=== PATIENT | female | born 1980 | race African-American/Black ===

== ENCOUNTER 2020-02-13 22:10 | Emergency (ER) | payer BC ==
[~2020-02-13] VITALS: Ht 170.2 cm; Wt 68.0 kg
[2020-02-13 22:12] VITALS: BP 187/112
--- NOTE | 2020-02-13 22:12 | NUR ---
ED Nurse Note: IV line was established by EMT ship's captain. Blood specimen collected by RN and sent to lab.
--- NOTE | 2020-02-13 22:12 | NUR ---
ED Nurse Note: Patient NORRIS RA29 from home c/o seizure. Per EMS, first seizure was witnessed by her partner. 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 Has hx of seizure, last seizure episode was 3 years ago. Per partner, pt was on clonazepam but is non compliant. Pt is unconcious and is on 15L non rebreather. Placed on bus driver/monitor.
--- NOTE | 2020-02-13 22:34 | NUR ---
ED Nurse Note: Pt was taken for CT via linnea, accompanied by 2 techs and a family member.
--- NOTE | 2020-02-13 22:51 | NUR ---
ED Nurse Note: Pt came back from CT, not in any distress.
--- NOTE | 2020-02-13 23:09 | Diagnostic Imaging Report ---
Indications: Seizures Technique: Spiral acquisitions obtained through the brain. Angled axial and coronal 5 x 5 mm slices were reconstructed. Total dose length product 1018 mGycm. CTDI vol(s) 53 mGy. Dose reduction achieved using automated exposure control Comparison: None. Findings: 2.7 x 2.7 cm cystic area isoattenuating to cerebral spinal fluid seen in the extra-axial right frontal region. This does not result in any mass effect. Normal sized extra axial CSF spaces otherwise. Normal size ventricles. Normal jimenez-white differentiation. No acute hemorrhage or edema. Visualized orbits are unremarkable. The mastoids are clear. The visualized sinuses are clear. Impression: Right frontal extra-axial cystic lesion without significant mass effect. Most likely represents an arachnoid cyst. This could also represent an area of cystic encephalomalacia from prior insult. Correlate with clinical history, consider MRI with contrast for better characterization Negative for acute cranial bleed or mass effect This agrees with the preliminary interpretation provided overnight by [facility]erad[facility] service. The CT scanner at [facility] [place] is accredited by the [employer] and the scans are performed using protocols designed to limit radiation exposure to as low as reasonably achievable to attain images of sufficient resolution adequate for diagnostic evaluation.
[2020-02-13 23:13] LABS: BASOPHILS % (AUTO) 2.8 % (0.0-2.0); EOSINOPHILS % (AUTO) 1.7 % (0.0-3.0); HEMATOCRIT 38.8 % (37.0-47.0); HEMOGLOBIN 11.7 G/DL (12.0-16.0); LYMPHOCYTES % (AUTO) 49.3 % (20.0-45.0); MEAN CORPUSCULAR VOLUME 74 FL (80-99); MONOCYTES % (AUTO) 7.7 % (1.0-10.0); NEUTROPHILS % (AUTO) 38.5 % (45.0-75.0); PLATELET COUNT 253 K/UL (150-450); RED BLOOD COUNT 5.21 M/UL (4.20-5.40); RED CELL DISTRIBUTION WIDTH 16.2 % (11.6-14.8)
[2020-02-13 23:18] LABS: ANION GAP 24 mmol/L (5-15); BLOOD UREA NITROGEN 17 mg/dL (7-18); CALCIUM 8.9 MG/DL (8.5-10.1); CARBON DIOXIDE 13 MMOL/L (21-32); CHLORIDE 101 MMOL/L (98-107); CREATININE 1.3 MG/DL (0.55-1.30); POTASSIUM 3.6 MMOL/L (3.5-5.1); SODIUM 138 MMOL/L (136-145)
[2020-02-13 23:22] LABS: ALANINE AMINOTRANSFERASE 21 U/L (12-78); ALBUMIN 4.3 G/DL (3.4-5.0); ALBUMIN/GLOBULIN RATIO 1.3 (1.0-2.7); ALKALINE PHOSPHATASE 68 U/L (46-116); ASPARTATE AMINO TRANSFERASE 24 U/L (15-37); BILIRUBIN,TOTAL 0.2 MG/DL (0.2-1.0)
--- NOTE | 2020-02-14 00:01 | NUR ---
ED Nurse Note: Patient is awake, more alert and oriented. Verbally responsive. Not in any distress. S/O at bedside.
[2020-02-14] MEDS ORDERED: KLONOPIN0.5 MG ORAL (00:44)
--- NOTE | 2020-02-14 00:51 | Emergency Room Report ---
History of Present Illness General Chief Complaint: Seizure Source: Patient, Family Member Present Illness HPI Patient presents by paramedics with reports of seizure activity Patient was given Versed in the field And is brought in postictal and somnolent Patient's partner does arrive reports that the patient had first seizure about 4 years ago In [place] where she was found to have liquid In the right part of the brain Extensive studies were performed and patient was discharged home with Rickey Patient however after about 3 months has stopped taking the medication she has been seizure-free since then While watching the debate this evening patient was found to have tonic-clonic activity by the partner and paramedics were summoned After awakening patient is GCS 15 Speech is clear Complains of mild body ache but denies any headache denies any neck pain COVID-19 risk:Travel to affect: No Allergies: Coded Allergies: No Known Allergies (Unverified , 02/13/20) Patient History Past Medical History: see triage record Reviewed Nursing Documentation: PMH: Agreed; PSxH: Agreed Nursing Documentation-PMH Hx Seizures: Yes Review of Systems All Other Systems: negative except mentioned in HPI Physical Exam Vital Signs Date Time Temp Pulse Resp B/P (MAP) Pulse Ox O2 Delivery O2 Flow Rate FiO2 02/13/20 22:10 98.4 110 20 187/112 (137) 100 Non-Rebreather 15.0 Sp02 EP Interpretation: reviewed, normal General Appearance: other - Postictal somnolent Head: normocephalic, atraumatic Eyes: bilateral eye PERRL, bilateral eye EOMI ENT: EOM grossly intact Neck: full range of motion, supple Respiratory: lungs clear, no respiratory distress, no retraction Cardiovascular #1: regular rate, rhythm Gastrointestinal: non tender, soft Musculoskeletal: normal inspection - Upon initial arrival patient is somnolent minimal response to physical stimuli however after observation patient is awake moving all extremities Neurologic: other - On arrival sluggish to respond with physical stimuli likely secondary to postictal and medications that were given after reevaluation patient is GCS 15 awake and appropriate Psychiatric: normal inspection Skin: no rash Lymphatic: no adenopathy Medical Decision Making Diagnostic Impression: Primary Impression: acute seizure ER Course Given the patient's history and presentation multiple differentials including but not limited to neurological neurosurgical infectious process were entertained as the patient has not had imaging here this was repeated also given that the patient's first episode was 4 years ago and has not had any since then there is similar findings to what the patient was describing with cyst on the right side frontal lobe Blood work otherwise showing some mild dehydration likely post seizure activity with a CO2 level Otherwise further hydration provided patient observed further At this time now awake alert GCS 15 patient is put back on her medications She has not had any neurological follow-up since her initial hospitalization and requires close follow-up Labs Test 02/13/20 22:28 White Blood Count 9.0 K/UL (4.8-10.8) Red Blood Count 5.21 M/UL (4.20-5.40) Hemoglobin 11.7 G/DL (12.0-16.0) Hematocrit 38.8 % (37.0-47.0) Mean Corpuscular Volume 74 FL (80-99) Mean Corpuscular Hemoglobin 22.4 PG (27.0-31.0) Mean Corpuscular Hemoglobin Concent 30.1 G/DL (32.0-36.0) Red Cell Distribution Width 16.2 % (11.6-14.8) Platelet Count 253 K/UL (150-450) Mean Platelet Volume 9.3 FL (6.5-10.1) Neutrophils (%) (Auto) 38.5 % (45.0-75.0) Lymphocytes (%) (Auto) 49.3 % (20.0-45.0) Monocytes (%) (Auto) 7.7 % (1.0-10.0) Eosinophils (%) (Auto) 1.7 % (0.0-3.0) Basophils (%) (Auto) 2.8 % (0.0-2.0) Sodium Level 138 MMOL/L (136-145) Potassium Level 3.6 MMOL/L (3.5-5.1) Chloride Level 101 MMOL/L (98-107) Carbon Dioxide Level 13 MMOL/L (21-32) Anion Gap 24 mmol/L (5-15) Blood Urea Nitrogen 17 mg/dL (7-18) Creatinine 1.3 MG/DL (0.55-1.30) Estimat Glomerular Filtration Rate 55.6 mL/min (>60) Glucose Level 98 MG/DL (74-106) Calcium Level 8.9 MG/DL (8.5-10.1) Total Bilirubin 0.2 MG/DL (0.2-1.0) Aspartate Amino Transf (AST/SGOT) 24 U/L (15-37) Alanine Aminotransferase (ALT/SGPT) 21 U/L (12-78) Alkaline Phosphatase 68 U/L (46-116) Total Protein 7.6 G/DL (6.4-8.2) Albumin 4.3 G/DL (3.4-5.0) Globulin 3.3 g/dL Albumin/Globulin Ratio 1.3 (1.0-2.7) Lipase 221 U/L (73-393) Rhythm Strip Diag. Results EP Interpretation: yes Rate: 77 Rhythm: NSR, no PVC's, no ectopy Chest X-Ray Diagnostic Results Chest X-Ray Diagnostic Results : Chest X-Ray Ordered: Yes # of Views/Limited/Complete: 1 View Indication: Chest Pain EP Interpretation: Yes Interpretation: no consolidation, no effusion, no pneumothorax Impression: No acute disease Electronically Signed by: Monalisa Ferrell DO CT/MRI/US Diagnostic Results CT/MRI/US Diagnostic Results : Impression CT headCT HEAD Without Contrast: Cystic mass that appears to be extra-axial involving the right frontal region that is isoattenuating to CSF and may reflect arachnoid cyst. Negative for mass-effect or midline shift. No evidence of intracranial hemorrhage. MRI brain recommended for any new onset seizure disorder. Last Vital Signs Date Time Temp Pulse Resp B/P (MAP) Pulse Ox O2 Delivery O2 Flow Rate FiO2 02/13/20 22:12 98.4 110 20 187/112 100 Non-Rebreather 15.0 Status: improved Disposition: HOME, SELF-CARE Condition: Improved Scripts Clonazepam* (KLONOPIN*) 0.5 Mg Tablet 0.5 MG ORAL Q12HR, #15 TAB 0 Refills Prov: Monalisa Ferrell DO 02/14/20 Referrals: NOT CHOSEN IPA/,REFERRING (PCP) Jabari Hu MD [facility]en Ortiz [facility] Patient Instructions: Seizure, Adult Additional Instructions: You have been previously diagnosed with a seizure activity. Please understand that [place] law requires that you do not drive until cleared further by specialty follow-up. Patient is provided with the discharge instructions notified to follow up with primary doctor in the next 2-3 days otherwise return to the er with any worsening symptoms. Please note that this report is being documented using DRAGON technology. This can lead to erroneous entry secondary to incorrect interpretation by the dictating instrument. Monalisa Ferrell DO Feb 14, 2020 00:51
[2020-02-14 00:56] VITALS: BP 105/69
--- NOTE | 2020-02-14 00:56 | NUR ---
ED Nurse Note: Pt cleared by ERMD for discharge. DC instructions/prescription was given and explained to pt and s/o verbalized understanding of teachings. All medical deviecs such as ID band and IV line removed. Pt is AAO x4, ambulatory and left with all personal belongings. Accompanied by s/o.
--- NOTE | 2020-02-14 08:28 | Diagnostic Imaging Report ---
Indication: Chest pain Technique: One view of the chest Comparison: none Findings: There is suggestion of some retrocardiac consolidation. The left medial hemidiaphragm is somewhat obscured. There is some atelectasis at the left lung base. The remaining lungs pleural spaces are clear. The heart size is normal.. Impression: Possible retrocardiac consolidation, could represent pneumonia if real. Correlate with clinical findings.
== END 2020-02-14 00:56 | disposition home or self-care (01) ==
LOC: EDBD 22:10 → EMR 22:40
DX: G40.909 Epilepsy, unspecified, not intractable, without status epilepticus (principal)
CPT/HCPCS: 36415; 70450; 71045; 80053; 82962; 83690; 85025; 93005; 96360; 99284; J7030; J7040

== ENCOUNTER 2020-10-12 06:32 | Emergency (ER) | payer BC ==
[~2020-10-12] VITALS: Ht 167.6 cm; Wt 70.3 kg
[~2020-10-12 06:32] MED LIST: KLONOPIN0.5 MG ORAL
[2020-10-12 06:36] VITALS: BP 121/57
--- NOTE | 2020-10-12 06:38 | NUR ---
ED Nurse Note: BROUGHT IN BY SEJAL RA 29 FROM HOME D/T SZ WITNESSED BY FAMILY X3 TODAY. PER EMS, WITNESSED 1 MIN SZ, GIVEN 5MG VERSED EN ROUTE VIA 18G L AC. EMS REPORTS PT HAS NOT BEEN COMPLYING WITH [facility]. VSS, NAD, AAOX1, ON BATTER OUT, SZ PADS PLACED ON RAILS.
--- NOTE | 2020-10-12 06:40 | NUR ---
ED Nurse Note: blood and urine collected and sent to lab
[2020-10-12] MEDS ORDERED: levETIRAcetam 1,000mg/NS100ml 100 ML IVPB ONE (06:45)
[2020-10-12 06:56] LABS: APPEARANCE,URINE CLEAR; BILIRUBIN, URINE NEGATIVE (NEGATIVE); COLOR,URINE PALE YELLOW; GLUCOSE, URINE (UA) NEGATIVE (NEGATIVE); KETONES,URINE 1+ (NEGATIVE); LEUKOCYTE ESTERASE ,URINE NEGATIVE (NEGATIVE); NITRITE,URINE NEGATIVE (NEGATIVE); PH,URINE 5 (4.5-8.0); PROTEIN,URINE 2+ (NEGATIVE); UROBILINOGEN,URINE NORMAL MG/DL (0.0-1.0)
[2020-10-12 06:59] LABS: BASOPHILS % (AUTO) 0.6 % (0.0-2.0); EOSINOPHILS % (AUTO) 0.1 % (0.0-3.0); HEMATOCRIT 40.3 % (37.0-47.0); HEMOGLOBIN 11.7 G/DL (12.0-16.0); LYMPHOCYTES % (AUTO) 16.3 % (20.0-45.0); MEAN CORPUSCULAR VOLUME 80 FL (80-99); MONOCYTES % (AUTO) 6.4 % (1.0-10.0); NEUTROPHILS % (AUTO) 76.6 % (45.0-75.0); PLATELET COUNT 179 K/UL (150-450); RED BLOOD COUNT 5.02 M/UL (4.20-5.40); RED CELL DISTRIBUTION WIDTH 14.9 % (11.6-14.8); WHITE BLOOD COUNT 7.5 K/UL (4.8-10.8)
--- NOTE | 2020-10-12 07:02 | Emergency Room Report ---
History of Present Illness General Chief Complaint: Seizure Source: Patient, EMS Present Illness HPI This patient is brought in by EMS. The patient has a known history of seizure disorder. EMS was called to her home after her family members called stating that she had had multiple tonic-clonic seizures this morning. Per report, the patient is on Keppra but has not been taking her Keppra. EMS report that she had a seizure in her care and they gave her 5 mg of IM Versed. On arrival by EMS the patient is sedated and unable to give any type of history. Entire history is obtained from EMS. The family is not present. History is very limited secondary to the patient being medicated by EMS prior to my evaluation. 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-19 Testing performed PLANNER CHIEF: No Patient History Past Medical History: see triage record, old chart reviewed, seizures Reviewed Nursing Documentation: PMH: Agreed; PSxH: Agreed Nursing Documentation-PMH Hx Seizures: Yes Review of Systems All Other Systems: limited Physical Exam Vital Signs Date Time Temp Pulse Resp B/P (MAP) Pulse Ox O2 Delivery O2 Flow Rate FiO2 10/12/20 06:32 97.7 92 18 121/57 (78) 99 Room Air 10/12/20 06:36 99 Sp02 EP Interpretation: reviewed, normal General Appearance: no apparent distress, non-toxic, Stupor Head: normocephalic, atraumatic Eyes: bilateral eye normal inspection, bilateral eye PERRL ENT: normal ENT inspection, normal pharynx, no angioedema Neck: normal inspection, full range of motion, supple, supple/symm/no masses Respiratory: lungs clear, normal breath sounds, no respiratory distress, no retraction, no accessory muscle use Cardiovascular #1: regular rate, rhythm, no edema Gastrointestinal: normal bowel sounds, soft, non-distended Rectal: deferred Musculoskeletal: normal inspection, normal range of motion, digits/nails normal, non-tender Neurologic: other - Unable to obtain full neuro exam secondary to medication effect. No focal findings. Psychiatric: other - Unable to assess on intial evaluation Skin: no rash, normal color Lymphatic: no adenopathy Medical Decision Making Diagnostic Impression: Primary Impression: Seizure disorder Additional Impression: Nonadherence to medication ER Course I suspect the seizures that the patient is presenting with is non-emergent in etiology. The patient has a history of seizures in the past and has returned to baseline with normal neurologic status. The patient is not immunocompromised with no history of known structural brain disease. The patient does not have persistent altered mental status, fever or new focal neurologic deficit. Laboratory workup was noncontributory. I doubt meningitis so a lumbar puncture was not performed. The patient was counseled that, though unlikely, the possibility of an emergent cause of seizure may still be present and that the patient should return immediately if symptoms persist or worsen. I believe the patient is stable for discharge to followup with the primary care provider for further workup. This patient was evaluated in the context of the global COVID-19 pandemic, which necessitated consideration that the patient might be at risk for infection with the [id number] virus that causes COVID-19. Institutional protocols and algorithms that pertain to the evaluation of patients at risk for COVID-19 and the state of rapid change based on information released by multiple regulatory bodies including the CDC and federal and state organizations. These policies and algorithms were followed during the patient's care in the ED. Laboratory Tests Test 10/12/20 06:30 10/12/20 08:45 White Blood Count 7.5 K/UL (4.8-10.8) Red Blood Count 5.02 M/UL (4.20-5.40) Hemoglobin 11.7 G/DL (12.0-16.0) L Hematocrit 40.3 % (37.0-47.0) Mean Corpuscular Volume 80 FL (80-99) Mean Corpuscular Hemoglobin 23.3 PG (27.0-31.0) L Mean Corpuscular Hemoglobin Concent 29.0 G/DL (32.0-36.0) L Red Cell Distribution Width 14.9 % (11.6-14.8) H Platelet Count 179 K/UL (150-450) Mean Platelet Volume 9.5 FL (6.5-10.1) Neutrophils (%) (Auto) 76.6 % (45.0-75.0) H Lymphocytes (%) (Auto) 16.3 % (20.0-45.0) L Monocytes (%) (Auto) 6.4 % (1.0-10.0) Eosinophils (%) (Auto) 0.1 % (0.0-3.0) Basophils (%) (Auto) 0.6 % (0.0-2.0) Urine Color Pale yellow Urine Appearance Clear Urine pH 5 (4.5-8.0) Urine Specific [place] 1.020 (1.005-1.035) Urine Protein 2+ (NEGATIVE) H Urine Glucose (UA) Negative (NEGATIVE) Urine Ketones 1+ (NEGATIVE) H Urine Blood 2+ (NEGATIVE) H Urine Nitrite Negative (NEGATIVE) Urine Bilirubin Negative (NEGATIVE) Urine Urobilinogen Normal MG/DL (0.0-1.0) Urine Leukocyte Esterase Negative (NEGATIVE) Urine RBC 0-2 /HPF (0 - 2) Urine WBC 0-2 /HPF (0 - 2) Urine Squamous Epithelial Cells Few /LPF (NONE/OCC) Urine Bacteria Few /HPF (NONE) Urine HCG, Qualitative Negative (NEGATIVE) Sodium Level 138 MMOL/L (136-145) 138 MMOL/L (136-145) Potassium Level 3.4 MMOL/L (3.5-5.1) L 4.1 MMOL/L (3.5-5.1) Chloride Level 103 MMOL/L (98-107) 106 MMOL/L (98-107) Carbon Dioxide Level 17 MMOL/L (21-32) L 25 MMOL/L (21-32) Anion Gap 18 mmol/L (5-15) H 7 mmol/L (5-15) Blood Urea Nitrogen 12 mg/dL (7-18) 10 mg/dL (7-18) Creatinine 1.5 MG/DL (0.55-1.30) H 1.2 MG/DL (0.55-1.30) Estimated Glomerular Filtration Rate 46.9 mL/min (>60) > 60 mL/min (>60) Glucose Level 101 MG/DL (74-106) 82 MG/DL (74-106) Calcium Level 8.4 MG/DL (8.5-10.1) L 8.2 MG/DL (8.5-10.1) L Total Bilirubin 0.3 MG/DL (0.2-1.0) Aspartate Amino Transferase (AST) 18 U/L (15-37) Alanine Aminotransferase (ALT) 13 U/L (12-78) Alkaline Phosphatase 58 U/L (46-116) Total Protein 7.1 G/DL (6.4-8.2) Albumin 3.8 G/DL (3.4-5.0) Globulin 3.3 g/dL Albumin/Globulin Ratio 1.2 (1.0-2.7) Urine Opiates Screen Negative (NEGATIVE) Urine Barbiturates Screen Negative (NEGATIVE) Phencyclidine (PCP) Screen Negative (NEGATIVE) Urine Amphetamines Screen Negative (NEGATIVE) Urine Benzodiazepines Screen Negative (NEGATIVE) Urine Cocaine Screen Negative (NEGATIVE) Urine Marijuana (THC) Screen Positive (NEGATIVE) H Microbiology Date/Time Source Procedure Growth Status 10/12/20 08:45 Nasopharynx SARS-CoV-2 RdRp Gene Assay - Final Complete EKG Diagnostic Results EKG Time: 06:37 EP Interpretation: Y Rate: normal Rhythm: NSR ST Segments: no acute changes Rhythm Strip Diag. Results EP Interpretation: yes Rate: 80's Rhythm: NSR, no PVC's, no ectopy Last Vital Signs Date Time Temp Pulse Resp B/P (MAP) Pulse Ox O2 Delivery O2 Flow Rate FiO2 10/12/20 06:36 92 18 Room Air 99 10/12/20 06:36 97.7 121/57 99 Status: improved Disposition: HOME, SELF-CARE Condition: Improved Patient Instructions: Seizure, Adult Lisbeth Cunningham DO Oct 12, 2020 07:02
[2020-10-12 07:06] LABS: CALCIUM 8.4 MG/DL (8.5-10.1); CREATININE 1.5 MG/DL (0.55-1.30); POTASSIUM 3.4 MMOL/L (3.5-5.1)
[2020-10-12 07:10] LABS: ALBUMIN 3.8 G/DL (3.4-5.0); ALBUMIN/GLOBULIN RATIO 1.2 (1.0-2.7); BILIRUBIN,TOTAL 0.3 MG/DL (0.2-1.0)
[2020-10-12 09:40] LABS: ANION GAP 7 mmol/L (5-15); BLOOD UREA NITROGEN 10 mg/dL (7-18); CALCIUM 8.2 MG/DL (8.5-10.1); CARBON DIOXIDE 25 MMOL/L (21-32); CHLORIDE 106 MMOL/L (98-107); CREATININE 1.2 MG/DL (0.55-1.30); POTASSIUM 4.1 MMOL/L (3.5-5.1); SODIUM 138 MMOL/L (136-145)
[2020-10-12] MEDS ORDERED: VIMPAT100 MG PO (10:25)
--- NOTE | 2020-10-12 10:30 | NUR ---
ER DISCHARGE NOTE: Patient is cleared to be discharged per ERMD, pt is aox4, on room air, with stable vital signs. pt was given dc and prescription instructions, pt was able to verbalize understanding, pt id band and iv site removed without complications. pt is able to ambulate with steady gait. pt took all belongings.
[2020-10-12 10:34] VITALS: BP 115/77
[2020-10-12 10:36] VITALS: BP 115/77
== END 2020-10-12 10:37 | disposition home or self-care (01) ==
LOC: EDUNIT# 06:32 → EDBD 06:32 → EMR 06:50
DX: G40.909 Epilepsy, unspecified, not intractable, without status epilepticus (principal); Z91.14 Patient's other noncompliance with medication regimen; Z79.899 Other long term (current) drug therapy
CPT/HCPCS: 36415; 80048; 80053; 80307; 81003; 81025; 85025; 93005; 96361; 96374; 99284; J1953; J7030; U0002

== ENCOUNTER 2020-10-13 23:15 | Inpatient (IN) | payer BC ==
[~2020-10-13] VITALS: Ht 175.3 cm; Wt 68.0 kg
[~2020-10-13 23:15] MED LIST changes: +VIMPAT100 MG PO
[2020-10-13 23:17] VITALS: BP 129/76
--- NOTE | 2020-10-13 23:17 | NUR ---
ED Nurse Note: pt walked into ED from home accompanied by partner d/t gertrudis clonic seizures. Pt had 1witnessed seizure at home and 1 seizure en route to ED both lasting apprx 15-20 seconds. Partner reports pt has history of seizures and started taking Vimpat and Klonopin yesterday, pt's partner reports pt was in ED last week for seizures.
--- NOTE | 2020-10-13 23:18 | NUR ---
ED Nurse Note: seizure pads placed on gurney
--- NOTE | 2020-10-13 23:20 | NUR ---
ED Nurse Note: witnessed pt has tonic clonic seizure lasting 45 seconds, EDMD aware.
--- NOTE | 2020-10-13 23:25 | NUR ---
ED Nurse Note: blood collected and send to lab
[2020-10-13] MEDS ORDERED: levETIRAcetam 1,000mg/NS100ml 100 ML IVPB ONE (23:30)
--- NOTE | 2020-10-13 23:55 | NUR ---
ED Nurse Note: lighting technician at bedside, pt going down to CT via gurney. Per EDMD pt ok to go to CT after ativan administration.
[2020-10-14] MEDS ORDERED: LORazepam Inj 2mg/ml 1ml IV ONE
[2020-10-14 00:03] LABS: BASOPHILS % (AUTO) 0.8 % (0.0-2.0); EOSINOPHILS % (AUTO) 0.2 % (0.0-3.0); HEMATOCRIT 37.7 % (37.0-47.0); HEMOGLOBIN 11.5 G/DL (12.0-16.0); LYMPHOCYTES % (AUTO) 20.8 % (20.0-45.0); MEAN CORPUSCULAR VOLUME 77 FL (80-99); MONOCYTES % (AUTO) 10.5 % (1.0-10.0); NEUTROPHILS % (AUTO) 67.7 % (45.0-75.0); PLATELET COUNT 153 K/UL (150-450); RED BLOOD COUNT 4.87 M/UL (4.20-5.40); RED CELL DISTRIBUTION WIDTH 14.6 % (11.6-14.8); WHITE BLOOD COUNT 6.6 K/UL (4.8-10.8)
--- NOTE | 2020-10-14 00:04 | Emergency Room Report ---
History of Present Illness General Chief Complaint: Seizure Source: Patient Present Illness HPI 40-year-old female with history of brain cyst and epilepsy here with seizure. Patient was here yesterday and was evaluated for a seizure. She had been noncompliant with her Keppra and was given Keppra IV in the emergency department and a prescription to take Keppra at home. Patient did not have any more seizures and was discharged. Earlier today the patient started taking Vimpat. Her partner at bedside said the patient had multiple tonic-clonic epileptic episodes and then earlier tonight began having multiple episodes of "small seizures, like she was shaking 1 part of her body." Here in the emergency department the patient had 1 focal seizure involving her lips and her left arm. She was given 2 mg of Ativan IV with resolution of her seizure-like activity. Patient is postictal and unable to participate in review of systems at this moment. Patient's partner at bedside however says that patient has a known history of a brain cyst and she has been largely noncompliant with her antiepileptics over the past several years. Review of patient's records show that she had a 2.7 x 2.7 right frontal lobe brain cyst on head CT approximately 8 months ago. 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 COVID-19 Screening: Negative COVID-19 COVID-19 Testing Source: utility appraiser 10/10/2020 Patient History Last Menstrual Period: 10/02/2020 Now: No Nursing Documentation-[facility] Past Medical History: No History, Except For Hx Neurological Problems: Yes - seizure Hx Seizures: Yes Review of Systems All Other Systems: limited - Postictal Physical Exam Vital Signs Date Time Temp Pulse Resp B/P (MAP) Pulse Ox O2 Delivery O2 Flow Rate FiO2 10/13/20 23:16 97.3 64 121/72 (88) 18 Room Air 10/13/20 23:52 18 Sp02 EP Interpretation: reviewed, normal General Appearance: no apparent distress, non-toxic, other - Postictal. Moving all extremities nonpurposefully. Appears fatigued Head: normocephalic, atraumatic Eyes: bilateral eye normal inspection, bilateral eye PERRL ENT: hearing grossly normal, normal pharynx, no angioedema, normal voice Neck: full range of motion, supple/symm/no masses Respiratory: chest non-tender, lungs clear, normal breath sounds, speaking full sentences Cardiovascular #1: regular rate, rhythm, no edema Cardiovascular #2: 2+ carotid (R), 2+ carotid (L), 2+ radial (R), 2+ radial (L), 2+ dorsalis pedis (R), 2+ dorsalis pedis (L) Gastrointestinal: normal bowel sounds, non tender, soft, non-distended, no guarding, no rebound Rectal: deferred Genitourinary: normal inspection, no CVA tenderness Musculoskeletal: back normal, normal range of motion, gait/station normal, non- tender Neurologic: motor strength/tone normal, sensory intact, speech normal, other - Postictal, fatigued, occasionally opens eyes to commands Psychiatric: judgement/insight normal, memory normal, mood/affect normal, no suicidal/homicidal ideation Lymphatic: no adenopathy Medical Decision Making Diagnostic Impression: Primary Impression: Seizure disorder Additional Impressions: Epileptic seizure, generalized Nonadherence to medication Arachnoid cyst ER Course EKG: NSR, no ischemia, intervals WNL. No ectopy. Rate 59 bpm Rhythm strip: patient monitored for arrhythmias - no malignant dysrhythmias, runs of PVCs, nor pauses noted Total critical care time: Approximately 25 minutes Due to a high probability of clinically significant, life threatening deterioration, the patient required the highest level of preparedness to intervene emergently and I personally spent this critical care time directly and personally managing the patient. This critical care time included obtaining a history, examining the patient, pulse oximetry, ordering and reviewing studies, ordering treatments, evaluating response to treatment and updating management plan as needed, frequent reassessment and discussion with other providers as well as arranging for ultimate disposition. This critical to care time was performed to assess and manage the high probability of life-threatening deterioration that could result in multiorgan failure. This critical care time is separate from the separately billable procedures and treating other patients. COMPARISON: Head CT 02/13/2020 FINDINGS: Brain: No intracranial hemorrhage or acute cortical infarct. Unchanged cystic extra-axial lesion overlying the right frontal lobe, potentially an arachnoid cyst. No edema. Ventricles: Unremarkable. Bones/joints: Unremarkable. No fracture. Soft tissues: Unremarkable. Sinuses: Unremarkable as visualized. Mastoid air cells: Unremarkable as visualized. IMPRESSION: 1. No acute intracranial abnormality. 2. Unchanged cystic extra-axial lesion overlying the right frontal lobe, potentially an arachnoid cyst. ' ' Laboratory Tests Test 10/13/20 23:45 10/13/20 23:50 10/14/20 00:32 White Blood Count 6.6 K/UL (4.8-10.8) Red Blood Count 4.87 M/UL (4.20-5.40) Hemoglobin 11.5 G/DL (12.0-16.0) L Hematocrit 37.7 % (37.0-47.0) Mean Corpuscular Volume 77 FL (80-99) L Mean Corpuscular Hemoglobin 23.6 PG (27.0-31.0) L Mean Corpuscular Hemoglobin Concent 30.5 G/DL (32.0-36.0) L Red Cell Distribution Width 14.6 % (11.6-14.8) Platelet Count 153 K/UL (150-450) Mean Platelet Volume 9.1 FL (6.5-10.1) Neutrophils (%) (Auto) 67.7 % (45.0-75.0) Lymphocytes (%) (Auto) 20.8 % (20.0-45.0) Monocytes (%) (Auto) 10.5 % (1.0-10.0) H Eosinophils (%) (Auto) 0.2 % (0.0-3.0) Basophils (%) (Auto) 0.8 % (0.0-2.0) Sodium Level 139 MMOL/L (136-145) Potassium Level 3.4 MMOL/L (3.5-5.1) L Chloride Level 104 MMOL/L (98-107) Carbon Dioxide Level 29 MMOL/L (21-32) Anion Gap 6 mmol/L (5-15) Blood Urea Nitrogen 11 mg/dL (7-18) Creatinine 1.2 MG/DL (0.55-1.30) Estimated Glomerular Filtration Rate > 60 mL/min (>60) Glucose Level 115 MG/DL (74-106) H Calcium Level 8.7 MG/DL (8.5-10.1) Total Bilirubin 0.4 MG/DL (0.2-1.0) Aspartate Amino Transferase (AST) 57 U/L (15-37) H Alanine Aminotransferase (ALT) 25 U/L (12-78) Alkaline Phosphatase 47 U/L (46-116) Total Protein 6.9 G/DL (6.4-8.2) Albumin 3.7 G/DL (3.4-5.0) Globulin 3.2 g/dL Albumin/Globulin Ratio 1.2 (1.0-2.7) Salicylates Level 0.3 ug/mL (2.8-20) L Acetaminophen Level < 2 MCG/ML (10-30) L Serum Alcohol < 3 mg/dL POC Whole Blood Glucose 108 MG/DL (74-106) H Human Chorionic Gonadotropin, Qual Negative (NEGATIVE) 40-year-old female with a history of arachnoid cyst and multiple seizures. Denilson pena had a seizure in the car on the way here to the emergency department and then had another seizure here in the emergency department approximately 20 minutes later. Patient was given 2 mg of Ativan IV and 1000 mg of Keppra soon after her arrival to the emergency department. She never suffered another seizure throughout the rest of her stay in the emergency department. She was initially postictal and gradually became much more awake and alert to the point where she became alert and oriented x3 and was having normal conversations with myself. CT head showed an unchanged 2.7 x 2.7 cm cystic structure in the right frontal lobe which appears to be an arachnoid cyst. CBC, CMP, drug screen all unremarkable. hCG negative. Patient admitted to telemetry Last Vital Signs Date Time Temp Pulse Resp B/P (MAP) Pulse Ox O2 Delivery O2 Flow Rate FiO2 10/13/20 23:52 52 18 125/93 99 10/13/20 23:16 97.3 Room Air Referrals: NON PHYSICIAN (PCP) Wu Gutiérrez M.D. Oct 14, 2020 00:04
--- NOTE | 2020-10-14 00:13 | NUR ---
ED Nurse Note: Spoke with EDMD regarding urine sample, pt continues to be drowsy and is unable to void at the moment. Pt's partner refuses catheter at the moment. Per EDMD ok to hold off on urine sample until pt is more alert.
--- NOTE | 2020-10-14 00:13 | NUR ---
ED Nurse Note: pt back from CT in stable condition. Per CT staff no seizures witnessed. Keppra infusion complete. Pt connected back to monitor.
[2020-10-14 00:14] LABS: ANION GAP 6 mmol/L (5-15); BLOOD UREA NITROGEN 11 mg/dL (7-18); CALCIUM 8.7 MG/DL (8.5-10.1); CARBON DIOXIDE 29 MMOL/L (21-32); CHLORIDE 104 MMOL/L (98-107); CREATININE 1.2 MG/DL (0.55-1.30); POTASSIUM 3.4 MMOL/L (3.5-5.1); SODIUM 139 MMOL/L (136-145)
[2020-10-14 00:19] LABS: ALANINE AMINOTRANSFERASE 25 U/L (12-78); ALBUMIN 3.7 G/DL (3.4-5.0); ALBUMIN/GLOBULIN RATIO 1.2 (1.0-2.7); ALKALINE PHOSPHATASE 47 U/L (46-116); ASPARTATE AMINO TRANSFERASE 57 U/L (15-37); BILIRUBIN,TOTAL 0.4 MG/DL (0.2-1.0)
--- NOTE | 2020-10-14 00:22 | Diagnostic Imaging Report ---
EXAM: CT Head Without Intravenous Contrast CLINICAL HISTORY: AMS TECHNIQUE: Axial computed tomography images of the head/brain without intravenous contrast. CTDI is 53.40 mGy and DLP is 1179.10 mGy-cm. One or more of the following dose reduction techniques were used: automated exposure control, adjustment of the mA and/or kV according to patient size, use of iterative reconstruction technique. COMPARISON: Head CT 02/13/2020 FINDINGS: Brain: No intracranial hemorrhage or acute cortical infarct. Unchanged cystic extra-axial lesion overlying the right frontal lobe, potentially an arachnoid cyst. No edema. Ventricles: Unremarkable. Bones/joints: Unremarkable. No fracture. Soft tissues: Unremarkable. Sinuses: Unremarkable as visualized. Mastoid air cells: Unremarkable as visualized. IMPRESSION: 1. No acute intracranial abnormality. 2. Unchanged cystic extra-axial lesion overlying the right frontal lobe, potentially an arachnoid cyst.
--- NOTE | 2020-10-14 00:49 | NUR ---
ED Nurse Note: pt resting in bed, no seizure activity noted. Pt still drowsy when name is called. Breathing even and unlabored. Vital signs stable.
[2020-10-14 01:15] VITALS: BP 109/70
--- NOTE | 2020-10-14 01:30 | NUR ---
ED Nurse Note: report given to GWYN Dumont in tele
--- NOTE | 2020-10-14 01:30 | NUR ---
ED Nurse Note: COVID swab collected and sent to lab
--- NOTE | 2020-10-14 01:42 | NUR ---
ED Nurse Note: Malinda Bedolla (pt's partner)
--- NOTE | 2020-10-14 02:28 | NUR ---
ED Nurse Note: pt transfered to tele floor. Pt in stable condition, vital signs stable. Admission packet and belongins taken with pt. Addendum: 10/14/20 at 0238 by VIVIAN ED Nurse Note: pt transfered to tele floor via gurney accompanied by myself and surveillance technician. Pt in stable condition, vital signs stable. Admission packet and belongins taken with pt.
--- NOTE | 2020-10-14 02:30 | NUR ---
NURSE NOTES: Patient admitted to telemetry for SZ disorder. Report received from ER nurse. Patient is asleep oriented x4. But patient is still drowsy. No SOB. Call light in reach. Side rails padded and up. Bed in lowest position locked with bed alarm activated. ER nurse stated that partner wanted to be called when patient arrived on unit. Partner Malinda made aware. Will contact Dr. Tinsley for admission orders.
--- NOTE | 2020-10-14 03:30 | NUR ---
Dr. Tinsley made aware and new orders noted and carried out. Home meds to continue. Vimpat not on hospital formulary. stated to call family to bring medication. Spoke with Malinda, partner and she said she will bring medication in the morning when she visits.
[2020-10-14] MEDS ORDERED: LORazepam Inj 2mg/ml 1ml IV PRN (04:00)
--- NOTE | 2020-10-14 07:20 | NUR ---
HAND-OFF: Report given to Alexus. Patient awake alert oriented x4 forgetful. Stable at this time.
--- NOTE | 2020-10-14 07:20 | NUR ---
NURSE NOTES: RECEIVED PATIENT A/A/OX4 IN BED. CALM AND COMFORTABLE. SIDERAILS ARE PADDED FOR SEIZURE PRECAUTIONS. HOB ELEVATED FOR ADEQUATE VENTILATION. VERBALLY RESPONSIVE. PIV PATENT AND INTACT. SALINE LOCK. ABLE TO FEED SELF. KEPT BED IN THE LOWEST POSITION. SIDERAILS ARE UPX3. CALL LIGHT IS WITHIN REACH. BED ALARM ENGAGED AND LOCK MODE ACTIVATED. WILL CONT THE PLAN OF CARE.
[2020-10-14 08:00] VITALS: BP 114/76
--- NOTE | 2020-10-14 08:14 | History & Physical ---
History and Physical History & Physicial History and Physical HPI Patient is a 40-year-old woman with history of subarchnoid brain cyst, epilepsy,admitted after having a seizure. Had a witnessed seizure in the ED. She had been noncompliant with her Keppra and Vimpath, received Ativan and Keppra IV in the emergency department. Her seizures were tonic-clonic,as well as having a number of lesser seizures, in the emergency department the patient had a focal seizure involving her lips and her left arm. Allergies: No Known Allergies Past Medical History: Seizures, subarachnoid cyst Family History: NA Social History: NA All Other Systems: limited - Postictal Physical Exam Vital Signs Date Time Temp Pulse Resp B/P (MAP) Pulse Ox O2 Delivery O2 Flow Rate FiO2 10/13/20 23:16 97.3 64 121/72 (88) 18 Room Air 10/13/20 23:52 18 General Appearance: no apparent distress, non-toxic, other - Postictal. Moving all extremities No current seizures Head: normocephalic, atraumatic Eyes: bilateral eye normal inspection, bilateral eye PERRL ENT: hearing grossly normal, normal pharynx, no angioedema, normal voice Neck: full range of motion, supple/symm/no masses, no LN Respiratory: chest non-tender, lungs clear, normal breath sounds Cardiovascular: regular rate, rhythm, no edema Gastrointestinal: normal bowel sounds, non tender, soft, non-distended, no guarding, no rebound Musculoskeletal: normal range of motion, non-tender Neurologic: motor strength/tone normal, sensory intact, fatigued, opens eyes to commands Medical Decision Making Impression: Seizure disorder Nonadherence to medication Subarachnoid cyst Plan: IV Keppra PRN [facility] Consultation PPX Monitor labs Seizure precautions EKG: NSR, no ischemia, intervals WNL. No ectopy. Rate [address] Head: COMPARISON: Head CT 02/13/2020 FINDINGS: Brain: No intracranial hemorrhage or acute cortical infarct. Unchanged cystic extra-axial lesion overlying the right frontal lobe, potentially an arachnoid cyst. No edema. Ventricles: Unremarkable. Bones/joints: Unremarkable. No fracture. Soft tissues: Unremarkable. Sinuses: Unremarkable as visualized. Mastoid air cells: Unremarkable as visualized. IMPRESSION: 1. No acute intracranial abnormality. 2. Unchanged cystic extra-axial lesion overlying the right frontal lobe, potentially an arachnoid cyst. ' ' Laboratory Tests Test 10/13/20 23:45 10/13/20 23:50 10/14/20 00:32 White Blood Count 6.6 K/UL (4.8-10.8) Red Blood Count 4.87 M/UL (4.20-5.40) Hemoglobin 11.5 G/DL (12.0-16.0) L Hematocrit 37.7 % (37.0-47.0) Mean Corpuscular Volume 77 FL (80-99) L Mean Corpuscular Hemoglobin 23.6 PG (27.0-31.0) L Mean Corpuscular Hemoglobin Concent 30.5 G/DL (32.0-36.0) L Red Cell Distribution Width 14.6 % (11.6-14.8) Platelet Count 153 K/UL (150-450) Mean Platelet Volume 9.1 FL (6.5-10.1) Neutrophils (%) (Auto) 67.7 % (45.0-75.0) Lymphocytes (%) (Auto) 20.8 % (20.0-45.0) Monocytes (%) (Auto) 10.5 % (1.0-10.0) H Eosinophils (%) (Auto) 0.2 % (0.0-3.0) Basophils (%) (Auto) 0.8 % (0.0-2.0) Sodium Level 139 MMOL/L (136-145) Potassium Level 3.4 MMOL/L (3.5-5.1) L Chloride Level 104 MMOL/L (98-107) Carbon Dioxide Level 29 MMOL/L (21-32) Anion Gap 6 mmol/L (5-15) Blood Urea Nitrogen 11 mg/dL (7-18) Creatinine 1.2 MG/DL (0.55-1.30) Estimated Glomerular Filtration Rate > 60 mL/min (>60) Glucose Level 115 MG/DL (74-106) H Calcium Level 8.7 MG/DL (8.5-10.1) Total Bilirubin 0.4 MG/DL (0.2-1.0) Aspartate Amino Transferase (AST) 57 U/L (15-37) H Alanine Aminotransferase (ALT) 25 U/L (12-78) Alkaline Phosphatase 47 U/L (46-116) Total Protein 6.9 G/DL (6.4-8.2) Albumin 3.7 G/DL (3.4-5.0) Globulin 3.2 g/dL Albumin/Globulin Ratio 1.2 (1.0-2.7) Salicylates Level 0.3 ug/mL (2.8-20) L Acetaminophen Level < 2 MCG/ML (10-30) L Serum Alcohol < 3 mg/dL POC Whole Blood Glucose 108 MG/DL (74-106) H Human Chorionic Gonadotropin, Qual Negative (NEGATIVE) Torsten Quezada MD Oct 14, 2020 08:14
[2020-10-14] MEDS: clonazePAM 0.5mg tab ORAL SCH ×2 (08:53→21:00)
[2020-10-14] MEDS: Heparin 5000 units/ml inj SUBQ SCH ×2 (08:57→21:03)
[2020-10-14] MEDS: levETIRAcetam 1,000mg/NS100ml 100 ML IVPB SCH ×2 (09:00→21:01)
[2020-10-14 09:18] LABS: BASOPHILS % (AUTO) 0.6 % (0.0-2.0); EOSINOPHILS % (AUTO) 0.1 % (0.0-3.0); HEMATOCRIT 37.8 % (37.0-47.0); HEMOGLOBIN 11.3 G/DL (12.0-16.0); LYMPHOCYTES % (AUTO) 22.9 % (20.0-45.0); MEAN CORPUSCULAR VOLUME 77 FL (80-99); MONOCYTES % (AUTO) 9.4 % (1.0-10.0); NEUTROPHILS % (AUTO) 66.9 % (45.0-75.0); PLATELET COUNT 175 K/UL (150-450); RED BLOOD COUNT 4.89 M/UL (4.20-5.40); RED CELL DISTRIBUTION WIDTH 14.6 % (11.6-14.8); WHITE BLOOD COUNT 8.4 K/UL (4.8-10.8)
[2020-10-14 09:36] LABS: ANION GAP 8 mmol/L (5-15); BLOOD UREA NITROGEN 8 mg/dL (7-18); CALCIUM 8.7 MG/DL (8.5-10.1); CARBON DIOXIDE 25 MMOL/L (21-32); CHLORIDE 106 MMOL/L (98-107); POTASSIUM 3.4 MMOL/L (3.5-5.1); SODIUM 139 MMOL/L (136-145)
--- NOTE | 2020-10-14 11:23 | NUR ---
NURSE NOTES: PATIENT C/O H/A AND ACETAMINOPHEN GIVEN. SIGNIFICANT OTHER @ BEDSIDE AND REMINDED WITH THE VIMPAT AND WILL BRING LATER TODAY. WILL CONT TO MONITOR.
[2020-10-14 12:05] VITALS: BP 112/62
--- NOTE | 2020-10-14 15:49 | NUR ---
NURSE NOTES: DR DE LA ROSA MADE AWARE OF THE K+3.4. REPLACED WITH 1 BAG OF KCL. WILL CONT THE PLAN OF CARE.
[2020-10-14 16:03] VITALS: BP 122/63
--- NOTE | 2020-10-14 17:36 | NUR ---
NURSE NOTES: OWN MEDS VIMPAT BROUGHT TO THE PHARMACY FOR INVENTORY. WILL CONT TO MONITOR.
--- NOTE | 2020-10-14 18:52 | NUR ---
NURSE HAND-OFF REPORT: Important Events on Shift:[received own meds and took to pharm; awaiting for EEG to be done; monitor for seizure activity; kept patient clean, comfortable and for safety] Patient Status: [stable] Diet: [reg no pork and no white bread] Pending Orders: [EEG] Pending Results/Labs:[] Pending MD notification:[] Latest Vital Signs: Temperature 99.0 , Pulse 70 , B/P 122 /63 , Respiratory Rate 18 , O2 SAT 98 , Room Air, O2 Flow Rate . Vital Sign Comment: [] EKG Rhythm: Sinus Rhythm Rhythm change?: N MD Notified?: - MD Response: Latest Stahl Fall Score: 30 Fall Risk: Medium Risk Safety Measures: Call light Within Reach, Bed Alarm Zone 2, Side Rails Side Rails x2, Bed position Low and Locked. Fall Precautions: Yellow Socks Yellow Gown Door Sign Patient Fall Education Report given to [DIMDWIGHT].
--- NOTE | 2020-10-14 19:10 | NUR ---
NURSE NOTES: RECEIVED REPORT FROM GWYN CHAMPAGNE. PT IN BED, AWAKE, ALERT/ORIENTED X4, PARTNER AT BEDSIDE. ABLE TO MAKE NEEDS KNOWN. NO RESP DISTRESS NOTED. 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 NO C/O PAIN OR DISCOMFORT. BILATERAL SIDE RAILS PADDED, SEIZURE PRECAUTIONS OBSERVED. BED IN LOW POSITION & LOCKED, SIDE RAILS UP X2, BED ALARM ON. CALL LIGHT WITH IN REACH. EXPLAINED TO PT TO USE CALL LIGHT AND ASK FOR ASSISTANCE BEFORE GETTING N & OUT OF BED.
[2020-10-14 20:00] VITALS: BP 110/60
[2020-10-14] MEDS: Lacosamide 50mg tablet ORAL SCH (21:00)
--- NOTE | 2020-10-14 21:45 | Consultation ---
DATE OF CONSULTATION: 10/14/2020 NEUROLOGICAL CONSULTATION CONSULTING PHYSICIAN: Mulugeta Kirkland MD CHIEF COMPLAINT: This is the first [facility] admission for this 40-year-old woman with a previous history of probable arachnoid cyst in frontal lobes, who is admitted for seizures. The patient has a history of seizures going back to 10 years ago. She apparently had an abnormal , but she could not describe any details. There is no history of febrile seizures. She denies any history of stroke, previous head injury, meningitis, or encephalitis. The patient had seizures in [place] and was treated with Keppra. The patient stopped her Keppra and had no seizures up until this summer when she had a generalized seizure. Apparently, the seizure started with vomiting, at least some of them started with vomiting. In the past, she had EEGs, which "did not show anything." Her MRI scan of the brain showed a right frontal lobe cystic lesion, probably an arachnoid cyst. The patient came here on 10/13/2020 after several seizures. She was drowsy at that time. Apparently, they were tonic-clonic seizures. She had amnesia the event. The patient was given IV Keppra in the emergency department and a prescription for Keppra at home. Earlier today, she started taking Vimpat, and she was having small seizures, shaking one part of the body. She came to the emergency room. She was given 2 mg of Ativan IV. The CT scan of the brain revealed 2.7 x 2.7 right frontal brain cyst. She was postictal this morning. The patient was found to have hypochromic mild anemia with normal platelets. Toxicology was essentially negative. She denies any alcohol recently except had occasional alcohol drinks in the past. She never smoked and does not take illegal drugs. The patient's chemistries revealed a normal calcium, slightly elevated AST, normal sodium, low potassium of 3.4, normal BUN and creatinine. The glucose was 115 yesterday and 107 on admission this morning. The patient's SARS negative. The patient states she has headaches with Keppra. She states that her seizures only occur at night when she sleeps. She has occasional headache after the seizure, occasional myalgias. Early, she had bitten her tongue in the past, but denies incontinence. There was confusion noted in the most recent seizure. She denies any caffeine use. There is no history of migraines, memory loss, hallucinations, delusions, psychosis, depression, or anxiety. She denies any muscle weakness, gait disorder, other tremors, shakes, paresthesias, dysesthesias in nose, falls, diplopia, blurred vision, loss of smell or taste, hearing loss, tinnitus, or dizzy spells. She denies any neck or back pain. There is no history of sickle cell disease, syphilis, gonorrhea, kidney disease, thyroid disease, or cancer. She has not been under any stress lately. She states she eats well and she gets enough sleep. There is no family history of neurologic disease. PAST MEDICAL HISTORY/PAST MEDICAL ILLNESSES: Essentially none. ALLERGIES: None. HABITS: See above. SOCIAL HISTORY: She is unmarried, has no children. 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 SURGERIES: She had a bunion removed in her second toe of her right foot. MEDICATIONS: Except the above none. FAMILY HISTORY: Her father of old age. Her mother is in fair health, 6 siblings are in good health except one that has heart disease. REVIEW OF SYSTEMS: Her appetite is good. Her weight is stable. PHYSICAL EXAMINATION: GENERAL: She is a well-developed, well-nourished woman, in no acute distress. VITAL SIGNS: Blood pressure is 112/62, pulse is 69 and regular, and temperature is 97.9 degrees. HEENT: Examination of her head is normal. NECK: The neck is supple. There is no tenderness. Carotids are +2 without any bruits. LUNGS: Clear to auscultation. CARDIOVASCULAR SYSTEM: PMI is not felt. JVP is probably normal. The patient had normal S1, S2 physiologically split. There is no S3, S4, murmurs, or rubs appreciated. ABDOMEN: The abdomen is basically scaphoid. Bowel sounds intact. No tenderness, masses, or organomegaly. BACK: There is no tenderness to percussion or muscle spasm. EXTREMITIES: Extremities are normal. NEUROLOGIC: Mental status, judgment is not tested. Affect appropriate. Memory, past memory is intact. Her birthday 1980. Immediate recall is 3/3 objects. Recent recall is 2/3 objects at 5 minutes. Intellect, similarities are mildly abstract, i.e., train and bicycle are "forms of transportation." Orientation, she knew the date was 10/14/2020 and it was Friday. She was at [facility] on the second floor. She was oriented to person. Spoken speech was fluent without paraphasias. Comprehension and simple repetition were intact. CRANIAL NERVE EXAMINATION: Cranial II: Visual brock are intact to confrontation. Cranial Nerves III, IV, and : Extraocular motility was full. Pupils were 5 mm, round, reactive to light and near. MUSCLE EXAMINATION: Muscle bulk and tone are normal. Strength is 5/5 proximally and distally. REFLEXES: Reflexes are +2 in the upper and lower extremities with downgoing toes on testing for Babinski response. COORDINATION: Xmolhl-[id number]-zkyh, uzke-wt-[id number] testing, rapid alternating movements are normal. GAIT AND STATION: She has a normal based gait. Heel-to-toe walk appeared normal. Romberg is negative. Tandem walk is minimally unsteady. SENSORY EXAMINATION: Pinprick, fine touch, proprioception are all intact. IMPRESSION: This patient has probably focal seizure disorder with secondary generalization, which may include partial complex seizures as well and otherwise mixed seizure disorder. Most likely, breakthrough seizures are due to not taking her medicines. The patient has some problems with Keppra; however, she is on Keppra at this time. Therefore, I will keep her on Keppra 1000 mg b.i.d. Increase her Vimpat to 200 mg b.i.d. She should not drive for 6 months until she gets a DMV evaluation. She should not take baths alone. She should have proper sleep and eat properly. Do not skip meals. She should not swim alone. An EEG should be done. I would like to increase her Vimpat to 200 mg twice a day and see how she does. Continue her Keppra 1000 mg b.i.d. and then taper her off as an outpatient. However, the patient was strongly advised to continue her medications and not skip any medication doses. PLAN: 1. Increase the Vimpat to 200 mg twice a day. 2. Keppra 1000 mg b.i.d. to taper as an outpatient as necessary. 3. EEG . Thank you for this interesting case, Dr. Ventura. Mulugeta MD Marita DR: FRANCIA JOB#: [id number] CC:
[2020-10-15] VITALS: BP 113/59
[2020-10-15 04:00] VITALS: BP 110/60
--- NOTE | 2020-10-15 07:20 | NUR ---
NURSE HAND-OFF REPORT: Important Events on Shift:[N/A] Patient Status: [STABLE] Diet: [REGULAR] Pending Orders: [] Pending Results/Labs:[] Pending MD notification:[] Latest Vital Signs: Temperature 98.6 , Pulse 60 , B/P 121 /69 , Respiratory Rate 18 , O2 SAT 97 , Room Air, O2 Flow Rate . Vital Sign Comment: [] EKG Rhythm: Sinus Bradycardia Rhythm change?: Y MD Notified?: N - MD Response: Latest Stahl Fall Score: 35 Fall Risk: Medium Risk Safety Measures: Call light Within Reach, Bed Alarm Zone 2, Side Rails Side Rails x2, Bed position Low and Locked. Fall Precautions: Yellow Socks Yellow Gown Door Sign Patient Fall Education Report given to [GWYN RIVERS].
--- NOTE | 2020-10-15 07:43 | NUR ---
NURSE NOTES: Received report from Desirae Felipe RN. Ethan sitting up in bed, awake and alert, watching television, venturi mask on, saturating at 93 percent, no c/o pain, no SOB, side rails up x3, bed in lowest position, wheels locked call light within reach, in no apparent distress. Urinal and water at bedside. Addendum: 10/15/20 at 0807 by INNA AMANDA RN Error: Wrong patient.
[2020-10-15 08:00] VITALS: BP 121/69
--- NOTE | 2020-10-15 08:08 | NUR ---
NURSE NOTES: Received report from Desirae Felipe RN. Patient sitting up in bed, talking on phone, breakfast tray next to patient, IV patent in left antecubital 22 gauge saline locked, side rails padded and suction at bedside for seizure precautions. No c/o pain, no SOB, in no apparent distress. Call light within reach.
[2020-10-15] MEDS: clonazePAM 0.5mg tab ORAL SCH (08:24)
[2020-10-15] MEDS: levETIRAcetam 1,000mg/NS100ml 100 ML IVPB SCH (08:24)
[2020-10-15] MEDS: Lacosamide 50mg tablet ORAL SCH (08:24)
[2020-10-15] MEDS: Heparin 5000 units/ml inj SUBQ SCH (08:25)
--- NOTE | 2020-10-15 10:25 | NUR ---
CASE MANAGEMENT:INITIAL REVIEW 40 YR OLD FEMALE FROM HOME CC;SEIZURE SI;SEIZURE. ARACHNOID CYST. 97.3 52 18 129/76 99% ON RA K+ 3.4 AST 57 URINE TOX ~ SALICYLATES 0.3 COVID RAPID ~ NEGATIVE HEAD CT ~ 1. No acute intracranial abnormality. 2. Unchanged cystic extra-axial lesion overlying the right frontal lobe, potentially an arachnoid cyst. IS;KEPPRA IV ATIVAN IV ADMITTED TO TELE TELE STATUS DCP;PATIENT IS FROM HOME PLAN; EEG
--- NOTE | 2020-10-15 10:37 | NUR ---
OPEN WINDER NOTE NO ADMIT ORDER IN PLACE. MESSAGE LEFT FOR DR CASTELLANO IN RE TO ADMIT ORDER.
[2020-10-15 12:00] VITALS: BP 124/75
--- NOTE | 2020-10-15 13:58 | NUR ---
NURSE NOTES: Patient requesting to be discharged, notified Dr. Torsten Quezada covering for Dr. Flavio Ventura.
[2020-10-15] MEDS ORDERED: KEPPRA1000 MG ORAL (15:33)
--- NOTE | 2020-10-15 16:00 | Cardiology Report ---
APPROVED REPORT EKG Measurement Heart [id number] <Conclusion> Sinus bradycardia Otherwise normal ECG
--- NOTE | 2020-10-15 16:05 | NUR ---
NURSE NOTES: Patient discharged in stable condition with belongings with significant other.
--- NOTE | 2020-10-15 18:12 | Pulmonology Progress Note ---
Subjective ROS Limited/Unobtainable: No Allergies: Coded Allergies: No Known Allergies (Unverified , 02/13/20) Objective Last 24 Hour Vital Signs Date Time Temp Pulse Resp B/P (MAP) Pulse Ox O2 Delivery O2 Flow Rate FiO2 10/15/20 12:00 97.7 66 18 124/75 (91) 99 10/15/20 12:00 62 10/15/20 09:00 Room Air 10/15/20 08:00 98.6 60 18 121/69 (86) 97 10/15/20 08:00 60 10/15/20 04:00 54 10/15/20 04:00 97.8 62 18 110/60 (77) 95 10/15/20 00:00 59 10/15/20 00:00 97.3 60 18 113/59 (77) 97 10/14/20 21:00 Room Air 10/14/20 20:00 78 10/14/20 20:00 98.5 66 18 110/60 (77) 95 Intake and Output 10/14/20 10/15/20 19:00 07:00 Intake Total 1100 ml 300 ml Balance 1100 ml 300 ml Intake Oral 600 ml 300 ml IV Total 500 ml # Voids 2 Microbiology Date/Time Source Procedure Growth Status 10/14/20 01:05 Nasopharynx SARS-CoV-2 RdRp Gene Assay - Final Complete Assessment/Plan Assessment/Plan ProgressNote HPI Patient is a 40-year-old woman with history of subarchnoid brain cyst, epilepsy,admitted after having a seizure. Had a witnessed seizure in the ED. She had been noncompliant with her Keppra and Vimpath, received Ativan and Keppra IV in the emergency department. Her seizures were tonic-clonic,as well as having a number of lesser seizures, in the emergency department the patient had a focal seizure involving her lips and her left arm. No further seizures - on Keppra Allergies: No Known Allergies Past Medical History: Seizures, subarachnoid cyst Family History: NA Social History: NA All Other Systems: limited - Postictal Physical Exam Vital Signs Noted General Appearance: no apparent distress, non-toxic, other - Postictal. Moving all extremities No current seizures Head: normocephalic, atraumatic Eyes: bilateral eye normal inspection, bilateral eye PERRL ENT: hearing grossly normal, normal pharynx, no angioedema, normal voice Neck: full range of motion, supple/symm/no masses, no LN Respiratory: chest non-tender, lungs clear, normal breath sounds Cardiovascular: regular rate, rhythm, no edema Gastrointestinal: normal bowel sounds, non tender, soft, non-distended, no guarding, no rebound Musculoskeletal: normal range of motion, non-tender Neurologic: motor strength/tone normal, sensory intact, fatigued, opens eyes to commands Medical Decision Making Impression: Seizure disorder Nonadherence to medication Subarachnoid cyst Plan: Continue [facility] Neurology Consultation noted DC planning PPX Monitor labs Seizure precautions EKG: NSR, no ischemia, intervals WNL. No ectopy. Rate [address] Head: COMPARISON: Head CT 02/13/2020 FINDINGS: Brain: No intracranial hemorrhage or acute cortical infarct. Unchanged cystic extra-axial lesion overlying the right frontal lobe, potentially an arachnoid cyst. No edema. Ventricles: Unremarkable. Bones/joints: Unremarkable. No fracture. Soft tissues: Unremarkable. Sinuses: Unremarkable as visualized. Mastoid air cells: Unremarkable as visualized. IMPRESSION: 1. No acute intracranial abnormality. 2. Unchanged cystic extra-axial lesion overlying the right frontal lobe, potentially an arachnoid cyst. EEG:No seizures noted Seen earlier,RUEL Mc Dr for DC Torsten Quezada MD Oct 15, 2020 18:12
--- NOTE | 2020-10-16 08:27 | Discharge Summary ---
Discharge Summary Discharge Summary _ DATE OF ADMISSION: 10/14/2020 DATE OF DISCHARGE: 10/15/2020 DISCHARGED BY: Dr. Ventura REASON FOR ADMISSION: 40 years old female with past medical history of brain cyst and seizure disorder , presented with breakthrough seizure episode. Patient apparently was in emergency department the day prior for evaluation of seizure. Patient was noncompliant with Keppra. At that time in ED patient received Keppra IV and provided with prescription for Keppra. Patient had no further seizures in the emergency room and was subsequently discharged home. Prior to current arrival to emergency department , patient took Vimpat according to her partner. Patient had multiple tonic-clonic epileptic episodes according to her partner. Patient was brought for further evaluation and management. CT of the head 8 months ago revealed 2 x 1.7 x 2.7 right frontal lobe brain cyst. Upon evaluation vital signs were stable. Laboratory work-up revealed no leukocytosis, hemoglobin 11.5, hematocrit 37.7, platelet count 153. Potassium 3.4, stable other electrolytes and renal parameters. Glucose 115. Albumin 3.7. Serum test negative. Salicylate , Tylenol and serum alcohol were all negative. CT of the head revealed unchanged cystic extra-axial lesion overlying the right frontal lobe, likely arachnoid cyst. No acute intracranial abnormalities. EKG reveals sinus rhythm , no acute ischemic changes. Patient received Ativan IV as well as loading dose of Keppra. No further seizure activity. Patient subsequently admitted to telemetry floor for further evaluation by neurologist. CONSULTANTS: neurologist Dr. Kirkland [facility] COU[facility]SE: Patient admitted to telemetry floor. Seizure precaution maintained. Patient was on Keppra. Ativan was on board as needed for breakthrough seizure. Patient continued on Vimpat. DVT prophylaxis provided. Per neurologist, patient likely had a focal seizure disorder with secondary generalization , which may include partial complex seizure and otherwise mixed seizure disorder. Most likely breakthrough seizure episodes were due to not to taking medication. Neurologist, Vimpat dose was increased to 200 mg twice daily. Keppra dose 1000 mg twice daily provided. Patient counseled on compliance with medication regimen. Patient advised not to drive for 6 months until DMV evaluation. Not to take baths alone. Patient was advised to have a proper sleep and diet, and not swim alone. EEG could be done as outpatient. Patient clinically stabilized and was ready for discharge home . Outpatient follow-up with neurologist. Due to rapid and unexpected improvement in patient condition, patient was discharged in 1 day. FINAL DIAGNOSES: Seizure disorder ( focal seizure disorder with secondary generalization , may include partial complex seizure and otherwise mixed seizure disorder) Nonadherence to medication Subarachnoid cyst DISCHARGE MEDICATIONS: See Medication Reconciliation list. DISCHARGE INSTRUCTIONS: Patient was discharged home. Patient was reinforced regarding compliance with medication regimen, propernutrition and sleep. Follow-up with neurologist as outpatient as advised. Follow-up with a primary care provider in 1 week. I have been assigned to dictate discharge summary for this account. I was not involved in the patient's management. Nidhi Mcgarry NP Oct 16, 2020 08:27
--- NOTE | 2020-10-16 14:15 | Electroencephalogram ---
DATE OF PROCEDURE: 10/15/2020 EEG REPORT REQUESTING PHYSICIAN: Mulugeta Kirkland MD. READING PHYSICIAN: Han Hernandez MD. HISTORY: This EEG was performed on a 40-year-old lady with history of seizure disorder associated with frontal arachnoid cysts. The purpose of this EEG was to evaluate the patient for ongoing ictal or interictal phenomena. TECHNICAL NOTE: This EEG was performed on a [employer] with electrodes placed on the scalp according to the international 10-20 system. Gvjwi-iq-qyxgs and iskxb-we-lnw montages were used. The EEG was technically satisfactory and was performed in the awake, drowsy, and sleep states. OBSERVATIONS: In the best-awake state, the background activity consisted of 8.5 to 9 hertz posterior rhythmic alpha activity. Drowsiness was characterized by dissolution of the alpha rhythm and the appearance of slow frequencies in the 4 to 5 hertz theta range. Stage 2 sleep was characterized by further slowing of the background in the delta and theta range, the presence of vertex waves, and 14 hertz sleep spindles. During sleep, bilateral frontotemporal polymorphic delta activity, sometimes in brief runs was seen. IMPRESSION: This is an abnormal EEG characterized by runs of bilateral frontotemporal polymorphic delta activity seen during sleep. COMMENT: The study is consistent with bilateral frontotemporal dysfunction. Please note that no interictal discharges were seen on this EEG. Han Hernandez M.D. DR: Elisa JOB#: [id number] CC:
== END 2020-10-15 16:05 | disposition home or self-care (01) | DRG 101 ==
LOC: EMR 23:32 → EDBEDREQ 10-14 01:12 → 2E 10-14 01:17
DX: G40.802 Other epilepsy, not intractable, without status epilepticus (principal); G93.0 Cerebral cysts; Z91.14 Patient's other noncompliance with medication regimen
CPT/HCPCS: 36415; 70450; 80048; 80053; 80299; 82962; 84703; 85025; 93005; 95819; 96374; 96375; 99291; G0480; U0002

== ENCOUNTER 2020-11-03 09:16 | Day surgery (SDC) | payer BC ==
[~2020-11-03] VITALS: Ht 175.3 cm; Wt 73.0 kg
[2020-11-03] VITALS (9 sets, daily range): BP systolic 111–124; BP diastolic 67–83
--- NOTE | 2020-11-03 07:54 | Anethesia Preoperative Eval ---
Anesthesia Pre-op PMH/ROS General Date of Evaluation: Nov 03, 2020 Anesthesiologist: Jr ASA Score: ASA 2 Mallampati Score Class I : Soft palate, uvula, fauces, pillars visible Class II: Soft palate, uvula, fauces visible Class III: Soft palate, base of uvula visible Class IV: Only hard plate visible Mallampati Classification: Class II Surgeon: Jacque Diagnosis: right 3d digit hammertoe Surgical Procedure: right 3rd digit hammertoe correction Anesthesia History: none Social History: drug use Family History: no anesthesia problems Allergies: Coded Allergies: No Known Allergies (Unverified , 11/03/20) Medications: see eMAR Patient NPO?: Yes NPO Date: Nov 03, 2020 NPO Time: 00:00 Past Medical History Cardiovascular: Denies: HTN, CAD, ID, valve dz, arrhythmia, other Pulmonary: Denies: asthma, COPD, ALFONSO, other Gastrointestinal/Genitourinary: Denies: GERD, CRI, ESRD, other Neurologic/Psychiatric: Reports: other - seizures-drug induced, last seizure a couple weeks ago. Patientt denies current drug use. Stopped oveer 1 month ago and back on the keppra now; Denies: dementia, CVA, depression/anxiety, TIA Endocrine: Denies: DM, hypothyroidism, steroids, other HEENT: Denies: cataract (L), cataract (R), glaucoma, [place] (L), [place] (R), other Hematology/Immune: Denies: anemia, DVT, bleeding disorder, other Musculoskeletal/Integumentary: Denies: OA, RA, DJD, DDD, edema, other PSxH Narrative: right 2nd hammertoe correction Anesthesia Pre-op Phys. Exam Physician Exam see chart Constitutional: NAD Cardiovascular: RRR Respiratory: CTA Airway Exam Mallampati Score: Class II MO: full ROM: full Teeth: intact Anesthesia Pre-op A/P Labs see chart Risk Assessment & Plan Assessment: ASA II Plan: MAC Status Change Before Surgery: No Pre-Antibiotics Drug: Ancef 1g Given Within 1 Hr of Incision: Yes Sue Norris MD Nov 03, 2020 07:53
[~2020-11-03 09:16] MED LIST changes: +Bacitracin 50000 Units Vial ONE; +Betadine 10% Oint 30gm TOPIC ONE; +KEPPRA1000 MG ORAL; +Lidocaine 1% Plain 30 ml INJ ONE
[2020-11-03] MEDS ORDERED: fentaNYL 100 mcg/2 mL IV PRN (10:00)
[2020-11-03] MEDS ORDERED: Metoclopramide 10mg/2ml Inj IVP PRN (10:00)
[2020-11-03] MEDS ORDERED: ceFAZolin sod 1 GM in NS 55 ML IVPB ONE (10:00)
[2020-11-03] MEDS ORDERED: LORazepam Inj 2mg/ml 1ml IV PRN (10:00)
[2020-11-03] MEDS ORDERED: LR 1000ml 1,000 ML IVLG SCH (10:00)
[2020-11-03] MEDS ORDERED: DiphenhydrAMINE 50mg/ml Inj IVP PRN (10:00)
[2020-11-03] MEDS ORDERED: Ketorolac 30mg Inj IV PRN (10:00)
[2020-11-03] MEDS ORDERED: Hydromorphone 0.5mg/0.5ml inj IVP PRN (10:00)
[2020-11-03] MEDS ORDERED: Midazolam 2mg/2ml Inj IVP PRN (10:00)
[2020-11-03] MEDS ORDERED: Labetalol 5mg/ml 20ml vial IV PRN (10:00)
--- NOTE | 2020-11-03 10:37 | Pre-Procedure Note/Attestation ---
Pre-Procedure Note/Attestation Complete Prior to Procedure Planned Procedure: right Procedure Narrative: correction of mallet toe 3rd right with arthroplasty. Indications for Procedure Pre-Operative Diagnosis: painful mallet toe 3rd right with IPK Attestation I attest that I discussed the nature of the procedure; its benefits; risks and complications; and alternatives (and the risks and benefits of such alternatives), prior to the procedure, with the patient (or the patient's legal installation service representative). I attest that, if there was a reasonable possibility of needing a blood transfusion, the patient (or the patient's legal installation service representative) was given the [facility] standardized written summary, pursuant to the [place] Blood Safety Act ([place] Health and Safety Code # 1645, as amended). I attest that I re-evaluated the patient just prior to the surgery and that there has been no change in the patient's H&P, except as documented below: Wilfredo Santillan DPM Nov 03, 2020 10:37
[2020-11-03] MEDS ORDERED: Lidocaine 1% MPF 10mg/ml 5ml ONE (10:54)
[2020-11-03] MEDS ORDERED: fentaNYL 100 mcg/2 mL IV ONE (10:54)
[2020-11-03] MEDS ORDERED: Midazolam 2mg/2ml Inj ONE ×2 (10:54→11:08)
[2020-11-03] MEDS ORDERED: Sterile Water Irrig 1000ml IRRIG ONE (11:00)
[2020-11-03] MEDS: Bupivacaine 0.25% Inj 30ml INJ ONE ×2 (11:00→11:45)
[2020-11-03] MEDS ORDERED: NS Irrig 1000ml ONE (11:00)
[2020-11-03] MEDS ORDERED: LR 1000ml ONE (11:00)
--- NOTE | 2020-11-03 12:04 | Brief Operative Note ---
Immediate Post Operative Note Operative Note Pre-op Diagnosis: painful mallet toe 3rd right with IPK Procedure: Mallet toe correction with arthroplasty 3rd distal IP joint right foot Post-op Diagnosis: same as pre-op Surgeon: wilfredo ornelas Anesthesiologist: kuldip Anesthesia: MAC Specimen: yes Complications: none Condition: stable Fluids: 0 Estimated Blood Loss: none Drains: none Tourniquet time: 23 Implant(s) used?: No Wilfredo Santillan DPM Nov 03, 2020 12:04
--- NOTE | 2020-11-03 12:09 | Immediate Post-Op Evaluation ---
Immediate Post-Op Evalulation Immediate Post-Op Evalulation Procedure: Right 3rd digit hammertoe correction Date of Evaluation: Nov 03, 2020 Time of Evaluation: 12:10 IV Fluids: 600 Blood Products: 0 Estimated Blood Loss: min Urinary Output: 0 Blood Pressure Systolic: 116 Blood Pressure Diastolic: 74 Pulse Rate: 90 Respiratory Rate: 16 O2 Sat by Pulse Oximetry: 100 Temperature (Fahrenheit): 97.5 Pain Score (1-10): 0 Nausea: No Vomiting: No Complications 0 Patient Status: awake, reacts, patent, none Hydration Status: adequate Drug: Ancef 1g Given Within 1 Hr of Incision: Yes Sue Norris MD Nov 03, 2020 12:09
--- NOTE | 2020-11-03 12:10 | 48 Hour Post Anesthesia Eval ---
Post Anesthesia Evaluation Procedure: Right 3rd digit hammertoe correction Date of Evaluation: Nov 03, 2020 Airway: patent Nausea: No Vomiting: No Pain Intensity: 0 Hydration Status: adequate Cardiopulmonary Status: at baseline Mental Status/LOC: patient returned to baseline Post-Anesthesia Complications: 0 Follow-up care needed: ready to discharge Sue Norris MD Nov 03, 2020 12:10
--- NOTE | 2020-11-03 17:11 | Diagnostic Imaging Report ---
Indication: Right foot pain Technique: 3 views right foot Comparison: none Findings: There is mild hallux valgus. No acute fracture. No dislocations. There is hammertoe deformities second through fifth digits.. Impression: No acute process
--- NOTE | 2020-11-03 17:18 | Diagnostic Imaging Report ---
Indication: pain, postoperative Technique: 3 views right foot Comparison: 2 hours earlier Findings: Interim osteotomy of the third middle phalangeal head. No other interim change Impression: Postsurgical changes. No unusual features
--- NOTE | 2020-11-03 18:15 | Pre-op HX & Phy Repo 2 SIG ---
DATE OF ADMISSION: 11/03/2020 LOCATION: [facility]. HISTORY OF PRESENT ILLNESS: This is a 31-year-old female with painful right foot deformity secondary to mallet toe on the third toe with a painful IPJ at the DIP joint. The patient says that the pain has been progressively getting worse over the past few years and the pain is mostly secondary to mallet toe that is creating pressure point and causing hyperkeratotic lesion to appear at the PIPJ. The patient has tried numerous conservative measures including padding, offloading, shoe changes, debridement and continues to experience daily pain. She had no recent illnesses. No recurrent nausea, vomiting, chills, or shortness of breath. The patient is scheduled to have surgery today at [facility]. PAST MEDICAL HISTORY: No pertinent findings. MEDICATIONS: None. ALLERGIES: No known drug allergies. SOCIAL HISTORY: Denies illicit drugs or smoking. FAMILY HISTORY: No pertinent findings. PHYSICAL EXAMINATION: VITAL SIGNS: Temperature is 97.8, pulse is 70, respirations 16, blood pressure is 124/80, O2 saturation is 98% on room temperature. DERMATOLOGICAL: There is no open lesion. Hyperkeratotic lesion noticed on the DIP joint of the third toe on the right, and contraction of the PIP joint also noted. VASCULAR: Dorsalis pedis and posterior artery are palpable with good pulse. No edema. MUSCULOSKELETAL: Full muscle strength. ASSESSMENT: This is a 39-year-old female with right foot deformity secondary to mallet toe on the third. After trying all conservative measures, she has decided to have surgery as next step for pain management. The risks, benefits, and alternatives were discussed with the patient in detail, who understands and wants to proceed with the surgical intervention. All the patient's questions have been addressed and answered. The patient is scheduled to have surgery today on 11/03/2020 at [facility]. Wilfredo Santillan D.P.M. DR: TIMOTHY JOB#: [id number] CC:
--- NOTE | 2020-11-03 19:30 | Operative Note - Dictated ---
DATE OF OPERATION: 11/03/2020 LOCATION: [facility]. SURGEON: iWlfredo Santillan DPM ANESTHESIOLOGIST: Sue Norris MD PREOPERATIVE DIAGNOSIS: Mallet toe with contracture of the DIPJ joint, right third. POSTOPERATIVE DIAGNOSIS: Mallet toe with contracture of the DIPJ joint, right third. OPERATION: Correction of left mallet toe with arthroplasty and release of the flexor tendon at the level of the DIPJ. HEMOSTASIS: Pneumatic ankle tourniquet at 250 mmHg. ESTIMATED BLOOD LOSS: Minimal. MATERIALS USED: 3-0 Vicryl, 4-0 Vicryl, 5-0 nylon. COMPLICATION: None. PATHOLOGY: Bone resected from the head of the middle phalanx of the third right toe, sent for pathology and further study. INJECTION: Approximately 10 mL of 0.25% Marcaine and lidocaine was given in the ratio of 1:1 in the right foot at the third MPJ joint in the fashion of a Mendiola block. Postoperatively, 2 mL of dexamethasone with 2 mL of Marcaine plain was given in the postoperative area for pain management and reduction of inflammation. DRESSING: The incision was covered with Betadine ointment, Xeroform, 4 x 4, Yandel. Postoperative shoe and crutches were given to the patient. DESCRIPTION OF THE PROCEDURE: The patient was brought into the operating room and placed on the operating table in supine position. A time-out was performed to verify the patient's name, procedure, site of surgery and consents verification. Monitored anesthesia care was administered to the patient. At this time, a well-padded pneumatic ankle tourniquet was placed about the patient's right ankle. After 1 g of Ancef was given to the patient, approximately 10 mL of 1:1 mixture of 0.25% Marcaine with 1% lidocaine was given in the area of the operation. The lower extremity was scrubbed, prepared, and draped in the usual aseptic manner. An Esmarch bandage was utilized to exsanguinate the right foot and ankle tourniquet was inflated to 250 mmHg. Attention was then directed to the right foot after third DIPJ joints where a hyperkeratotic lesion was noticed. At this time, a horizontal elliptical incision was made over the DIPJ joint. The incision encompassed the IPK. A wedge of skin was then removed that included IPK. At this time, the incision was deepened through subcutaneous tissue and capsule. Transverse capsulotomy was performed and the head of the middle phalanx was freed from all medial and lateral attachments. At this time, it was noticed that the head was inappropriately enlarged. At this time, using a sagittal saw, approximately 2 mL of the head of the middle phalanx of the third was osteotomized and passed from the field. At this time, it was noticed that the joints continued to have contraction. Flexor tendon release was done through the original incision site and it was noticed that the toe was in the mild rectus position. At this time, the extensor tendons were reapproximated and closed using 3-0 Vicryl. Subsequently, the deeper tissues were closed using 4-0 Vicryl and the skin was closed using 5-0 nylon. At this time, an injection of 2 mL of 4 mg of dexamethasone with 2 mL of Marcaine was given in the area for postoperative pain management to reduce inflammation. Dressing consisted of Betadine, Xeroform, 4 x 4, Yandel was applied. After dressing was applied, tourniquet was deflated and immediate hyperemia was noticed digits 1 through 5 on the right. The patient was then transferred from the operating room to the recovery room with all vital signs stable. The patient will be discharged home upon the recommendation from Anesthesia. There were no complications with the surgery. The patient was given postoperative pain management before the surgery and the antibiotic before the surgery and she had them at home. The patient was given instruction and followup appointment with Dr. Santillan. Nieves SchofieldPDwaine MONTEMAYOR: ROB JOB#: [id number] CC:
== END 2020-11-03 13:30 | disposition home or self-care (01) ==
LOC: SUR 09:16
DX: M20.41 Other hammer toe(s) (acquired), right foot (principal); L85.9 Epidermal thickening, unspecified
CPT/HCPCS: 28232; 28285; 36415; 73630; 84703; 94003; 97161; J0690; J1100; J2001; J2250; J2704; J3010; J3490; J7120; U0002; 94150